=== PATIENT | male | born 1975 | race Caucasian/White ===

== ENCOUNTER 2020-10-12 06:04 | Emergency (ER) | payer BC, OTHER ==
--- NOTE | 2020-10-12 08:15 | RAD REPORT ---
EXAM DESCRIPTION: Anibal Pa And Lat (2 Views)10/12/2020 8:01 am CLINICAL HISTORY: Cough COMPARISON: None FINDINGS: Mild to moderate pulmonary opacities. The heart is mildly enlarged IMPRESSION: Mild to moderate pulmonary opacities probably pneumonia
[2020-10-12 08:50] LABS: Absolute Lymphocytes (CBC) 0.5 K/uL (0.7-4.9); Basophils % 0.5 % (0-1.3); Hematocrit 39.8 % (39.6-49.0); MPV 8.4 fL (7.6-11.3); RBC Red Blood Cell Count 4.94 M/uL (4.33-5.43)
[2020-10-12 08:58] LABS: Protime INR 1.22
[2020-10-12] MEDS ORDERED: ACETAMINOPHEN 500 MG TAB ONE (09:00)
[2020-10-12] MEDS ORDERED: METHYLPREDNISOLONE 125 MG INJ ONE (09:00)
[2020-10-12 09:14] LABS: ALT/SGPT 73 U/L (12-78); AST/SGOT 40 U/L (15-37); Albumin 3.6 g/dL (3.4-5.0); Alkaline Phosphatase 68 U/L (45-117); BUN Blood Urea Nitrogen 12 mg/dL (7-18); Bicarbonate 30 mmol/L (21-32); Bilirubin Direct 0.2 mg/dL (0-0.2); Bilirubin Total 0.8 mg/dL (0.2-1.0); Ferritin 661.1 ng/mL (26-388); Glucose Level 114 mg/dL (74-106); Magnesium 2.3 mg/dL (1.8-2.4); Potassium 4.2 mmol/L (3.5-5.1); Protein, Total 7.6 g/dL (6.4-8.2); Sodium Level 136 mmol/L (136-145); Troponin (Emerg Dept Use Only) < 0.02 ng/mL (0.0-0.045)
[2020-10-12 09:15] LABS: NT PRO-BNP < 5 pg/mL (<125)
--- NOTE | 2020-10-12 09:15 | RAD REPORT ---
EXAM DESCRIPTION: CT - Chest For Pe Angio - 10/12/2020 8:55 am CLINICAL HISTORY: cough COMPARISON: October 12, 2020 chest x-ray TECHNIQUE: Dynamically enhanced axial 3 mm thick images of the chest were obtained during administra tion of <100> mL Isovue 370 IV contrast. Coronal and oblique reconstruction images were generated and reviewed. Exam utilizes a protocol for optimal evaluation of pulmonary arterial tree. Maximum intensity projections 3D imaging was utilized All CT scans are performed using dose optimization technique as appropriate and may include automated exposure control or mA/KV adjustment according to patient size. FINDINGS: Thel opacification pulmonary arteries is somewhat suboptimal. A gross pulmonary seen A thoracic aortic aneurysm is not noted. A pleural effusion is not seen. A pericardial effusion is not seen. Moderate bilateral ground-glass opacities within the lungs Fatty liver IMPRESSION: A pulmonary embolism is seen. Moderate bilateral ground-glass opacities within the lungs may indicate Covid Pneumonia
--- NOTE | 2020-10-12 10:13 | EDPHYS ---
Physician Documentation [facility] Name: Juanpablo Cervantes Age: 44 yrs Sex: Male : 1975 Arrival Date: 10/12/2020 Time: 06:07 Bed 17 Private MD: ED Physician Lalo Arce HPI: 10/12 08:15 This 44 yrs old Male presents to ER via Ambulatory with complaints of + COVID cp 19 COUGHING UP BLOOD. 08:15 The patient has shortness of breath with light activity. Onset: The symptoms/episode cp began/occurred gradually. 08:15 The patient or guardian reports cough, described as moderate, with productive sputum, cp that is purulent, with noted blood. 08:15 Associated signs and symptoms: Pertinent positives: chest pain, Pertinent negatives: cp diaphoresis, dizziness, fever. Patient reports testing positive for COVID-19 10 days ago. Historical: - Allergies: 06:24 No Known Allergies; em - PMHx: 06:24 Depression; Hypertension; em - PSHx: 06:24 Appendectomy; Tonsillectomy; em - Immunization history:: Adult Immunizations not immunized, Client reports having NOT received the Covid vaccine. - Social history:: Smoking status: Patient denies any tobacco usage or history of. ROS: 08:20 Eyes: Negative for injury, pain, redness, and discharge. cp 08:20 Constitutional: Positive for fever, Negative for body aches, poor PO intake. 08:20 Cardiovascular: Negative for chest pain, edema, palpitations. 08:20 Respiratory: Positive for cough, "sounds productive", hemoptysis, shortness of breath, on exertion. Negative for wheezing. 08:20 Abdomen/GI: Negative for abdominal pain, vomiting, diarrhea, constipation. 08:20 ENT: Negative for drainage from ear(s), ear pain, sore throat, difficulty swallowing, cp difficulty handling secretions. 08:20 Back: Negative for pain at rest, pain with movement. 08:20 Neuro: Negative for altered mental status, headache, numbness, syncope, weakness. 08:20 Skin: Negative for rash. cp 08:20 All other systems are negative. Exam: 08:25 Constitutional: The patient appears in no acute distress, alert, awake, cp non-diaphoretic, non-toxic, well developed, well nourished, obese. 08:25 Head/Face: Normocephalic, atraumatic. cp 08:25 Eyes: Periorbital structures: appear normal, Conjunctiva: normal, no exudate, no injection, Sclera: no appreciated abnormality, Lids and lashes: appear normal, bilaterally. 08:25 ENT: External ear(s): are unremarkable, Nose: is normal, Mouth: Lips: moist, Oral mucosa: moist, Posterior pharynx: Airway: no evidence of obstruction, patent. 08:25 Neck: ROM/movement: is normal, is supple, without pain, no range of motions limitations, no meningismus. 08:25 Chest/axilla: Inspection: normal, Palpation: crepitus, is not appreciated, tenderness, is not appreciated. 08:25 Cardiovascular: Rate: tachycardic, Rhythm: regular, Heart sounds: murmur, not appreciated, Edema: is not appreciated, JVD: is not appreciated. 08:25 Respiratory: the patient does not display signs of respiratory distress, Respirations: labored breathing, that is mild, intercostal retractions, are absent, Breath sounds: bronchial sounds, that are mild, are heard diffusely, decreased breath sounds, are not appreciated, stridor, is not appreciated, wheezing: is not appreciated. 08:25 Abdomen/GI: Exam negative for distension, Inspection: abdomen appears normal, Palpation: abdomen is soft and non-tender, in all quadrants. 08:25 Back: pain, is absent, ROM is normal. 08:25 Skin: no rash present. 08:25 Neuro: Orientation: to person, place \\T\\ time. Mentation: is normal, Motor: moves all fours, strength is normal. 08:55 ECG was reviewed by the Attending Physician. cp Vital Signs: 06:20 BP 157 / 87; Pulse 109; Resp 20; Temp 100.3; Pulse Ox 94% on R/A; Weight 107.5 kg; em Height 5 ft. 5 in. (165.10 cm); Pain 0/10; 08:04 BP 129 / 98; Pulse 105; Resp 18 S; Temp 99.3; Pulse Ox 95% on R/A; iw 09:09 BP 137 / 82; Pulse 102; Resp 18 S; Pulse Ox 91% on R/A; jd3 10:16 BP 137 / 82; Pulse 101; Resp 18 S; Pulse Ox 92% on R/A; jd3 11:21 Pulse 100; Resp 18 S; Pulse Ox 95% on R/A; jd3 06:20 Body Mass Index 39.44 (107.50 kg, 165.10 cm) em MDM: 08:13 Patient medically screened. cp 08:30 Differential diagnosis: Bronchitis CHF exacerbation, Chronic Obstructive Pulmonary cp Disease bronchitis, flu, pneumonia, Pneumothorax pulmonary edema, Pulmonary Embolism Sepsis Unstable Angina. 10:13 Data reviewed: vital signs, nurses notes, lab test result(s), EKG, radiologic studies, cp CT scan, plain films. 10:13 Test interpretation: by ED physician or midlevel provider: ECG, plain radiologic cp studies. Counseling: I had a detailed discussion with the patient and/or guardian regarding: the historical points, exam findings, and any diagnostic results supporting the discharge/admit diagnosis, lab results, radiology results, the need for outpatient follow up, a family practitioner, to return to the emergency department if symptoms worsen or persist or if there are any questions or concerns that arise at home. Response to treatment: the patient's symptoms have markedly improved after treatment, VSS. Cough and shortness of breath improved. Patient with oxygen sats above 90% w/o supplemental oxygen. Patient appears non-toxic and no signs of respiratory distress. Will discharge to home for continued monitoring. 10/12 08:08 Order name: Basic Metabolic Panel; Complete Time: 09:15 10/12 09:16 Interpretation: Normal except: GLUC 114; GFR 89; CA 8.4. 10/12 08:08 Order name: CBC with Diff; Complete Time: 08:57 10/12 08:57 Interpretation: Normal except: WBC 4.20; HGB 13.5; PLT 147; MELBA% 80.8; LYM% 13.0; LYMA cp 0.5. 10/12 08:08 Order name: LFT's; Complete Time: 09:16 cp 10/12 09:16 Interpretation: Normal except: AST 40; GLOB 4.0; A/G 0.9. 10/12 08:08 Order name: Magnesium; Complete Time: 09:17 cp 10/12 08:08 Order name: NT PRO-BNP; Complete Time: 09:17 cp 10/12 08:08 Order name: PT-INR; Complete Time: 09:15 cp 10/12 07:36 Order name: XRAY Chest Pa And Lat (2 Views); Complete Time: 08:57 cp 10/12 08:08 Order name: Troponin (emerg Dept Use Only); Complete Time: 09:16 cp 10/12 09:16 Interpretation: TROPED < 0.02; Reviewed. cp 10/12 08:08 Order name: D-Dimer; Complete Time: 09:15 cp 10/12 08:08 Order name: CRP; Complete Time: 09:16 cp 10/12 09:16 Interpretation: Abnormal: C-REACTIVE PROT 72.60. cp 10/12 08:08 Order name: Ferritin; Complete Time: 09:17 cp 10/12 08:12 Order name: CT Chest For PE Angio; Complete Time: 09:29 cp 10/12 09:30 Interpretation: Report reviewed. cp 10/12 08:08 Order name: EKG; Complete Time: 08:09 cp 10/12 08:08 Order name: Cardiac monitoring; Complete Time: 08:51 cp 10/12 08:08 Order name: EKG - Nurse/Tech; Complete Time: 08:51 cp 10/12 08:08 Order name: IV Saline Lock; Complete Time: 08:51 cp 10/12 08:08 Order name: Labs collected and sent; Complete Time: 08:51 cp 10/12 08:08 Order name: O2 Per Protocol; Complete Time: 08:51 cp 10/12 08:08 Order name: O2 Sat Monitoring; Complete Time: 08:51 cp EC:55 Rate is 101 beats/min. Rhythm is regular. AK interval is normal. QRS interval is cp normal. QT interval is normal. T waves are Inverted in lead III. Interpreted by me. Reviewed by me. Administered Medications: 08:43 Drug: SOLU-Medrol (methylPrednisoLONE) 125 mg Route: IVP; Site: left antecubital; jd3 09:40 Follow up: Response: No adverse reaction jd3 08:43 Drug: Tylenol 1000 mg Route: PO; jd3 09:40 Follow up: Response: No adverse reaction jd3 10:14 Drug: NS 0.9% 1000 ml Route: IV; Rate: 1 bolus; Site: left antecubital; jd3 11:24 Follow up: Response: No adverse reaction; IV Status: Completed infusion; IV Intake: jd3 1000ml 10:14 Drug: Albuterol HFA Inhaler 2 puffs Route: Inhalation; jd3 11:00 Follow up: Response: No adverse reaction jd3 Disposition: 10/13 06:24 Co-signature as Attending Physician, Lalo Arce MD I agree with the assessment and estevan plan of care. Disposition Summary: 10/12/20 10:13 Discharge Ordered Location: Home cp Problem: new cp Symptoms: have improved cp Condition: Stable cp Diagnosis - Other viral pneumonia cp - SARS-associated coronavirus as the cause of diseases classified elsewhere cp Followup: cp - With: Private Physician - When: 2 - 3 days - Reason: Recheck today's complaints Discharge Instructions: - Discharge Summary Sheet cp - COVID-19 cp - Things to Know about the COVID-19 Pandemic - [facility] cp - 10 Things You Can Do to Manage Your COVID-19 Symptoms at Home - [facility] cp - Prevent the Spread of COVID-19 if You Are Sick - [facility] cp Forms: - Medication Reconciliation Form cp - Thank You Letter cp - Antibiotic Education cp - Prescription Opioid Use cp Prescriptions: - albuterol sulfate 90 mcg/actuation Inhalation HFA aerosol inhaler - inhale 2 puff by INHALATION route every 4-6 hours; 1 Inhaler; Refills: 0, cp Product Selection Permitted - Zithromax Z-Demarco 250 mg Oral Tablet - take 1 tablet by ORAL route as directed for 5 days Day 1 - take two (2) tablets cp one time. Day 2, 3, 4 , 5 take one (1) tablet once daily.; 6 tablet; Refills: 0, Product Selection Permitted - Prednisone 20 mg Oral Tablet - take 2 tablets by ORAL route once daily for 5 days then take 1 tablet daily for cp 5 days; 15 tablet; Refills: 0, Product Selection Permitted - Tessalon Perles 100 mg Oral Capsule - take 2 capsule by ORAL route every 8 hours As needed; 30 capsule; Refills: 0, cp Product Selection Permitted - ivermectin 3 mg Oral tablet - take 5 tablet by ORAL route every other day; 10 tablet; Refills: 0, Product cp Selection Permitted Signatures: Dispatcher [employer] Lalo Mckee MD MD cha Munoz, Edgar RN Susi Donaldson RN RN iw Page, Corey, PA PA cp Davies, Jonathon, RN RN jd3 Corrections: (The following items were deleted from the chart) 10/12 09:16 09:15 Normal except: GLUC 114; GFR 89. cp cp 18:54 08:55 Constitutional: Positive for fever, Negative for body aches, poor PO intake, cp cp 18:54 08:55 Cardiovascular: Negative for chest pain, edema, palpitations, cp cp 18:54 08:55 Respiratory: Positive for cough, "sounds productive", hemoptysis, shortness of cp breath, on exertion. Negative for wheezing, cp 18:54 08:55 Abdomen/GI: Negative for abdominal pain, vomiting, diarrhea, constipation, cp cp 18:54 08:55 Eyes: Negative for injury, pain, redness, and discharge, cp cp
--- NOTE | 2020-10-12 10:13 | ER ---
Nurse's Notes [facility] Name: Juanpablo Cervantes Age: 44 yrs Sex: Male : 1975 Arrival Date: 10/12/2020 Time: 06:07 Bed 17 Private MD: Diagnosis: Other viral pneumonia;SARS-associated coronavirus as the cause of diseases classified elsewhere Presentation: 10/12 06:20 Chief complaint: Patient states: has had covid for 10 days, has been coughing up blood em this morning, also has had fever, took ibuprofen last night, chest pain when breathing in deep. Coronavirus screen: cough unrelated to allergies, fever, Client presents with at least one sign or symptom that may indicate coronavirus-19. Standard/surgical mask placed on the client. Provider contacted for isolation considerations. Ebola Screen: Patient negative for fever greater than or equal to 101.5 degrees Fahrenheit, and additional compatible Ebola Virus Disease symptoms Patient denies exposure to infectious person. Patient denies travel to an Ebola-affected area in the 21 days before illness onset. No symptoms or risks identified at this time. Initial Sepsis Screen: Does the patient meet any 2 criteria? HR > 90 bpm. No. Patient's initial sepsis screen is negative. Does the patient have a suspected source of infection? Yes: Productive cough/pneumonia. Risk Assessment: Do you want to hurt yourself or someone else? Patient reports no desire to harm self or others. Onset of symptoms was October 12, 2020. 06:20 Method Of Arrival: Ambulatory em 06:20 Acuity: RONALD 3 em Historical: - Allergies: 06:24 No Known Allergies; em - PMHx: 06:24 Depression; Hypertension; em - PSHx: 06:24 Appendectomy; Tonsillectomy; em - Immunization history:: Adult Immunizations not immunized, Client reports having NOT received the Covid vaccine. - Social history:: Smoking status: Patient denies any tobacco usage or history of. Screenin:06 Abuse screen: Denies threats or abuse. Denies injuries from another. Nutritional iw screening: No deficits noted. Tuberculosis screening: No symptoms or risk factors identified. Fall Risk. Assessment: 08:05 General: Appears in no apparent distress. Behavior is calm, cooperative. Pain: Denies iw pain. Neuro: Level of Consciousness is awake, alert, obeys commands, Oriented to person, place, time, situation. Respiratory: Reports shortness of breath on exertion cough that is persistent Airway is patent Respiratory effort is even, unlabored. Derm: Skin is intact, is healthy with good turgor. 09:09 Reassessment: Patient appears in no apparent distress at this time. No changes from jd3 previously documented assessment. Patient and/or family updated on plan of care and expected duration. Pain level reassessed. Patient is alert, oriented x 3, equal unlabored respirations, skin warm/dry/pink. 10:16 Reassessment: Patient appears in no apparent distress at this time. Patient and/or jd3 family updated on plan of care and expected duration. Pain level reassessed. Patient is alert, oriented x 3, equal unlabored respirations, skin warm/dry/pink. awaiting NS bolus completion prior to discharge. 11:21 Reassessment: Patient appears in no apparent distress at this time. Patient and/or jd3 family updated on plan of care and expected duration. Pain level reassessed. Patient is alert, oriented x 3, equal unlabored respirations, skin warm/dry/pink. Vital Signs: 06:20 BP 157 / 87; Pulse 109; Resp 20; Temp 100.3; Pulse Ox 94% on R/A; Weight 107.5 kg; em Height 5 ft. 5 in. (165.10 cm); Pain 0/10; 08:04 BP 129 / 98; Pulse 105; Resp 18 S; Temp 99.3; Pulse Ox 95% on R/A; iw 09:09 BP 137 / 82; Pulse 102; Resp 18 S; Pulse Ox 91% on R/A; jd3 10:16 BP 137 / 82; Pulse 101; Resp 18 S; Pulse Ox 92% on R/A; jd3 11:21 Pulse 100; Resp 18 S; Pulse Ox 95% on R/A; jd3 06:20 Body Mass Index 39.44 (107.50 kg, 165.10 cm) em ED Course: 06:07 Patient arrived in ED. es 06:24 Triage completed. em 06:24 Arm band placed on. em 08:01 XRAY Chest Pa And Lat (2 Views) In Process Unspecified. EDMS 08:07 Lalo Rodriguez PA is PHCP. cp 08:07 Lalo Arce MD is Attending Physician. cp 08:24 Hemant Perez, GÓMEZ is Primary Nurse. jd3 08:51 Patient has correct armband on for positive identification. Bed in low position. Call jd3 light in reach. Side rails up X 1. laboratory monitor on. Pulse ox on. NIBP on. 08:51 Inserted saline lock: 20 gauge in left antecubital area, using aseptic technique. Blood jd3 collected. 08:55 CT Chest For PE Angio In Process Unspecified. EDMS 11:22 No provider procedures requiring assistance completed. IV discontinued, intact, jd3 bleeding controlled, No redness/swelling at site. Pressure dressing applied. Administered Medications: 08:43 Drug: SOLU-Medrol (methylPrednisoLONE) 125 mg Route: IVP; Site: left antecubital; jd3 09:40 Follow up: Response: No adverse reaction jd3 08:43 Drug: Tylenol 1000 mg Route: PO; jd3 09:40 Follow up: Response: No adverse reaction jd3 10:14 Drug: NS 0.9% 1000 ml Route: IV; Rate: 1 bolus; Site: left antecubital; jd3 11:24 Follow up: Response: No adverse reaction; IV Status: Completed infusion; IV Intake: jd3 1000ml 10:14 Drug: Albuterol HFA Inhaler 2 puffs Route: Inhalation; jd3 11:00 Follow up: Response: No adverse reaction jd3 Intake: 11:24 IV: 1000ml; Total: 1000ml. jd3 Outcome: 10:13 Discharge ordered by . cp 11:22 Discharged to home ambulatory. jd3 11:22 Condition: stable 11:22 Discharge instructions given to patient, Instructed on discharge instructions, follow up and referral plans. medication usage, Demonstrated understanding of instructions, follow-up care, medications, Prescriptions given X 5 11:24 Patient left the ED. jd3 Signatures: Dispatcher [employer] Natacha Garcia Edgar, RN RN em Williams, Irene, RN RN iw Page, Corey, PA PA cp Hemant Perez RN RN jd3
[2020-10-12] MEDS ORDERED: NA CHLORIDE 0.9% 1,000 ML ONE (10:32)
[2020-10-12] MEDS ORDERED: ALBUTEROL INHALER 60 PUFF/8 GM IH ONE (10:32)
[2020-10-12 21:06] VITALS: TEMP 99.3
[2020-10-12 21:07] VITALS: BP 137/82
[2020-10-12 21:11] VITALS: O2SAT 95
== END 2020-10-12 11:24 | disposition home or self-care (01) ==
LOC: ER 06:04
DX: U07.1 COVID-19 (principal); J12.89 Other viral pneumonia; I10 Essential (primary) hypertension
CPT/HCPCS: 96361; 93005; 85025; 80048; 36415; 83735; 85610; 82565; 85379; 80076; 84484; 82728; 83880; 86140; 71275; 71046; 96374; 99285; Q9967; J7030; J2930